=== PATIENT | male | born 1950 | race Caucasian/White ===

== ENCOUNTER 2022-06-10 14:28 | Outpatient (REF) | payer MEDICARE, OTHER, SELFPAY ==
[2022-06-10 15:18] LABS: Influenza A PCR POSITIVE (Negative); Influenza B PCR NEGATIVE (Negative); Resp Syncy Virus RNA Qual PCR NEGATIVE (Negative); SARS COV2 PCR INHOUSE NEGATIVE (Negative)
== END 2022-06-10 14:29 | disposition home or self-care (01) ==
LOC: HO.LNP 14:28
PROVIDERS: Visit Provider Nurse Practitioner Family
DX: Z20.822 Contact with and (suspected) exposure to COVID-19 (principal); R09.89 Other specified symptoms and signs involving the circulatory and respiratory systems
CPT/HCPCS: 0241U

== ENCOUNTER 2024-04-20 13:16 | Outpatient (AMB) | payer MEDICARE, OTHER, SELFPAY ==
--- NOTE | 2024-04-20 13:20 | MHC.OFFWIV ---
Intake Vital Signs 04/20/24 13:23 Height 5 ft 5 in Weight 150 lb BMI 25.0 BP 100/60 Blood Pressure Location Rt brachial Position Sitting Pulse 82 Pulse Source Pulse Oximeter Pulse Oximetry (%) 98 Oxygen Delivery Method Room Air Intake Visit Reasons: EP Gout in RT thumb? Intake Note: pt is here for gout on RT thumb Patient Tobacco Use Status: Never used Tobacco Allergies No Known Allergies Allergy (Verified 04/20/24 13:21) Do you need a note to return to daycare/school/sports/work: No HPI HPI Comments History of Present Illness Details Patient is a 74-year-old male complaining of gout in his right thumb base. He states he has had it in this area many times before and colchicine is the medication he usually takes for it which knocks it read out. He states he has been very tender and painful for the last day. He says he can move it a little bit but it is more painful when he tries to move it. PFSH Social History Patient Tobacco Use Status: Never used Tobacco Review of Systems Const All systems reviewed & are unremarkable except as noted in HPI and below Physical Exam Vital Signs: Last Vital Signs Pulse 82 04/20/24 13:23 BP 100/60 04/20/24 13:23 Pulse Ox 98 04/20/24 13:23 Oxygen Delivery Method Room Air 04/20/24 13:23 BMI result Body Mass Index 25.0 Const General: cooperative, healthy appearing, comfortable and no acute distress Orientation/consciousness: patient oriented x3 HEENT Head: Yes normal to inspection General nose exam: Normal external nose present Face and sinus: Yes normal facial exam Eyes General: appearance normal, both eyes and all related structures Neck Neck: Yes normal visual inspection Resp Effort & Inspection: normal respiratory effort and able to speak in complete sentences Neuro General: patient oriented x3 Extrem Other: exquisite tenderness, erythema and swelling of right thumb MCP, full ROM, normal capillary refill; no ecchymosis, no signs of infection noted Assessment & Plan Assessment & Plan (1) Gout attack: Code(s): M10.9 - Gout, unspecified Qualifiers: Gout site: hand Encounter type: initial encounter Laterality: right Plan: Sent colchicine to pharmacy as patient has previously tolerated it with his current medications. Plan See above Medications: New colchicine On day 1, take 2 tablets followed by 1 tablet 1 hour later. Do not exceed 3 tablets in 24 hours. On day 2 and 3, take 1 tablet every 12 hours. 0.6 mg PO DAILY 7 tabs 0RF Coding Level of Care Code New Pt Level 3 (27571) Diagnoses Gout attack M10.9 Gout site: hand Encounter type: initial encounter Laterality: right
[2024-04-20 13:23] VITALS: BP 100/60; PULSE 82; O2SAT 98; BMI 25.0
== END 2024-04-20 14:04 | disposition home or self-care (01) ==
PROVIDERS: PCP Internal Medicine; Visit Provider Physician Assistant
DX: M10.9 Gout, unspecified (principal)

== ENCOUNTER → 2024-04-20 13:16 | Outpatient (BNVA) | payer MEDICARE, OTHER, SELFPAY | PROVIDERS: PCP Internal Medicine; Visit Provider Physician Assistant | DX: M10.9 Gout, unspecified (principal) | CPT/HCPCS: 99202 ==

== ENCOUNTER 2025-03-15 10:44 | Outpatient (REF) | payer MEDICARE, OTHER, SELFPAY | END 2025-03-15 10:45 | disposition home or self-care (01) | LOC: HO.LAB 10:44 | PROVIDERS: PCP Internal Medicine | DX: J06.9 Acute upper respiratory infection, unspecified (principal) | CPT/HCPCS: 99212 ==

== ENCOUNTER 2025-03-15 10:44 | Outpatient (AMB) | payer MEDICARE, OTHER, SELFPAY ==
--- OUTSIDE RECORDS SUMMARY | 2012-10-11 | XMS_ITS | Encounter Summary ---
Author Organization [facility] Address [address] [facility] [address] [place] [address] Phone Care Team Providers Care News Director Name Role Phone Unavailable Primary Care Provider Unavailabl e Encounter Details Date Type Department Care Team (Late st Contact Info) Description 10/11/2012 Hospital Encounter [facility] [address] [place] [address] Naraayn Morocho MD 55 [facility] [address] [place] [address] [email or web address] Social History Tobacco Use Types Packs/Day Years [...] Description 04/05/2025 4:30 PM EDT Office Visit [facility] Internal Medicine [address] [place] [address] Danny Villar MD [address] [place] [address] [email or web address] 05/22/2025 3:30 PM EST Office Visit [facility] Geriatrics [address] [place] [address] Rafita Osborn DO [address] [place] [address] [email or web address] documented as of this encounter Procedures Procedure Name Priority Date/Time Associated Diagnosis Comments MRI SPINE NEUROLOGIC FOCUS OUTSIDE (NO INTERPRETATION) Routine 10/11/2012 12:00 AM EDT documented in this encounter Results * MRI Spine (Neuro) Outside (No Interpretation) (10/11/2012 12:00 AM EDT) Narrative [facility] - 06/23/2019 3:05 PM EST This study is for PACS storage only and not for interpretation. us Narayan Morocho MD IMG OUTSIDE IMAGING W /OUT INTERPRETATION Final Result [facility] documented in this encounter Visit [...] It is not the complete legal health record.[facility]
--- OUTSIDE RECORDS SUMMARY | 2023-10-28 09:00 | XMS_ITS ---
Author Organization [facility] Address [address] [place] [phone] Care Team Providers Care Woodworking Machine Setter Name Role Phone Danny Villar MD Primary Care Provider Anna Mcgowan Unavailable [phone] Juan Triplett [phone] Etienne Encounters Encounter Location Date Provider Diagnosis [address] [address] 10/28/2023 Juan Triplett Plan Of Treatment Next Appt Details Provider Name:Anna velasquez, 04/10/2025 03:30:00 PM, [address] [place] [address], [phone], Progress Notes * Smith PAIZDOB:1950 (75 yo M)Acc No.[id number]:10/28/2023 Progress Note Patient: Smith MCCANN Provider: Ignacio Triplett DPM :1950 A ge:73 Y S ex:Male Date:10/28/2023 Address:[address] [place], [place] [id number] Pcp:Danny Villar MD Subjective: * Chief Complaints: * [address] Etienne. * Medical History: Objective: * Vitals: Assessment: Plan: * Treatment: * Images: * The named appointment provid er may or may not be the originator of this progress note, and it is not deemed complete until electronically signed by the appointment provider. Sign off status: Pending * Provider: Ignacio Triplett DPM Date: 0 10/28/2023 Generated for Cinthia ngo/Wilber/Chadwick on: 0 03/15/2025 01:28 PM EDT
--- NOTE | 2025-03-15 10:45 | AM.OFFWIN_ITS ---
Intake Vital Signs 03/15/25 10:46 Height 5 ft 5 in Weight 148 lb BMI 24.6 BP 100/68 Blood Pressure Location Lt brachial Position Sitting Respiration 16 Pulse 70 Pulse Source Pulse Oximeter Temp 98.6 F Temp Source Oral Pulse Oximetry (%) 95 Oxygen Delivery Method Room Air Intake Visit Reasons: ep cough sneezing body aches Patient Tobacco Use Status: Never used Tobacco Mechanic Senior Required: No Accompanied by: Self / Same As Patient Allergies No Known Allergies Allergy (Verified 03/15/25 10:46) HPI HPI Comments History of Present Illness Details History - The patient is a 75-year-old male pres enting with a productive cough and shortness of breath when lying down. He is also c/o fatigue, body aches and sneezing. - The cough has been present for five da ys and is productive in nature. - The patient denies any fever and repor ts a normal temperature of 98?F. - Wheezing and slight shortness of breat h occurs primarily when lying down at night. - There is no history of asthma or chron ic obstructive pulmonary disease. - The patient has a pacemaker and is on Eliquis, a blood thinner. - Mild sinus congestion is noted, with s ome tenderness on palpation. - The patient reports fatigue but denies any ear pain, nausea, vomiting, or diarrhea; denies dizziness or syncope. Physical Exam General: Cooperative, healthy appearing, comfortable and no acute distress Orientation/consciousness: Patient oriented x3 Limitations: No limitations Head: Normal to inspection Ears: Hearing grossly normal bilaterally, external ears normal and TM's normal bilaterally Nose: Normal external nose present, Normal nares present and No nasal discharge present Face and sinus: Normal facial exam and Mild sinus tenderness Mouth: Normal oral and palatal mucosa present and moist mucous membranes Throat: Yes tonsils normal, Yes uvula midline. Posterior oropharynx erythema, no exudates Eyes: Appearance normal, both eyes and all related structures Neck: Normal visual inspection, full ROM Respiratory: no wheezing, slight rhonchi LLL. Normal respiratory effort, able to speak in complete sentences, Actively coughing, no respiratory distress, not tachypneic, no tripod positioning and no use of accessory muscles. Cardiovascular: Regular rate and rhythm. Normal S1 and S2 Skin: No rashes or lesions noted Neuro: Patient oriented x3 Extremities: Normal to inspection and Yes no clubbing, cyanosis or edema Review of Systems - Respiratory: Reports productive cough for five days, denies fever, reports shortness of breath when lying down - Cardiovascular: Denies chest pain or p alpitations - Gastrointestinal: Denies nausea, vomit ing, or diarrhea - Neurological: Reports fatigue, denies dizziness or syncope All systems reviewed and are unremarkable except as noted in HPI [facility] Social History Patient Tobacco Use Status: Never used Tobacco Physical Exam Vital Signs: Last Vital Signs Temp 98.6 F 03/15/25 10:46 Pulse 70 03/15/25 10:46 Resp 16 03/15/25 10:46 BP 100/68 03/15/25 10:46 Pulse Ox 95 03/15/25 10:46 Oxygen Delivery Method Room Air 03/15/25 10:46 BMI result Body Mass Index 24.6 Assessment & Plan Assessment & Plan (1) URI, acute: Code(s): J06.9 - Acute upper respiratory infection, unspecified Plan: Plan Patient was informed and verbally consented to the use of an ambient scribe for clinic note documentation during this visit. - O2 sat 95%, other VSS, pt well appearing and PE remarkable for slightly rhonchorous LLL. - Sent Tesselon Pearles to pharmacy to quell cough, advised to take primarily at night. - Advised to continue Mucinex and consider adding an allergy pill. - Viral panel sent and chest x-ray ordered to rule out underlying infection with lung sounds and O2 a little decreased from his baseline. Orders: Orders Resp Pathogen Panel - [facility] [place] Today J06.9 - Acute upper respiratory infection, unspecified XR chest 2V Today R05.9 - Cough, unspecified Medications: New benzonatate 200 mg PO BEDTIME PRN 10 caps 0RF cough Coding Level of Care Code New Pt Level 4 (09719) Diagnoses URI, acute J06.9
[2025-03-15 10:46] VITALS: BP 100/68; PULSE 70; RESP 16; TEMP 37; O2SAT 95; BMI 24.6
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
--- OUTSIDE RECORDS SUMMARY | 2025-03-15 13:28 | XMS_ITS | Clinical Summary ---
Author Organization [facility] Address [address] [place] [address] Phone Care Team Providers Care Website Optimization Strategist Name Role Phone Danny Villar MD Primary Care Provider [phone] Manjit Sutherland MD Unavailable Un available Danny Villar MD Unavailable [phone] Allergies Active Allergy Reactions Criticality Noted Date Comments Amiodarone 04/01/2021 Caused balance issues, tremors Codeine 03/01/2021 Upsets stomach Other Reaction(s): Unknown Latex, Natural Rubber Rash Low 11/06/2022 Pt states rash with exercise belt which is made of rubber Morphine 03/01/2021 Upsets stomach Other Reaction(s): Unknown Sulfadiazine 02/19/2024 Other Reaction(s): vertigo Medications buPROPion (WELLBUTRIN SR) 150 MG SR 12 hr tablet Take 150 mg by mouth daily. 1 Active therapeutic multivitamin tablet Take 1 tablet by mouth daily. Active Medication-Free TextIndications:Bi PAP Machine Indications: BiPAP Machine Active ELIQUIS 5 mg tabletIndications: Paroxysmal atrial fibrillation Take 1 tablet (5 mg total) by mouth 2 (two) times a day. 180 tablet 2 1 Active rosuvastatin (CRESTOR) 20 MG tablet Take 20 mg by mouth daily. 1 Active magnesium 250 mg Tab Take by mouth nightly at bedtime. Active traZODone (DESYREL) 50 MG tablet Take 1 tablet by mouth nightly at bedtime. 2 Active amoxicillin (AMOXIL) 500 MG tablet Prior to dental procedures 2 Active ascorbic acid, vitamin C, (VITAMIN C) 500 MG tablet Take 500 mg by mouth daily. Active aspirin 81 MG EC tablet Take 81 mg by mouth daily. Active psyllium seed, with sugar, (FIBER ORAL) Take 1 capsule by mouth daily. Active carvedilol (COREG) 12.5 MG tablet Take 12.5 mg by mouth 2 (two) times a day with meals. 2 Active DULoxetine (CYMBALTA) 60 MG capsule Take 60 mg by mouth 2 (two) times a day. 2 Active zinc sulfate (ZINC-15 ORAL) Take 1 capsule by mouth daily. 2 Active fluticasone propionate (FLONASE) 50 mcg/actuation nasal sprayIndications:A llergic rhinitis, unspecified seasonality, unspecified trigger 2 sprays by Nasal route daily. 16 g 12 3 Active spironolactone (ALDACTONE) 25 MG tablet Take 25 mg by mouth daily. 3 Active sacubitril-valsart an 24-26 mg per tablet Take 1 tablet by mouth 2 (two) times a day. 4 Active TURMERIC ORAL Take 1 tablet by mouth daily. 4 Active levothyroxine (SYNTHROID, LEVOTHROID) 100 MCG tabletIndications: Hypothyroidism, unspecified TAKE 1 TABLET BY MOUTH EVERY DAY IN THE MORNING 90 tablet 3 5 Active clonazePAM (KLONOPIN) 0.25 MG disintegrating tablet Take 0.25 mg by mouth nightly at bedtime. 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 Srikanth Plasencia MD [phone] r/t PRN Degenerative disc disease, lumbar 06/24/2019 Anxiety 05/31/2019 Cardiovascular disease 05/31/2019 Carpal tunnel syndrome 05/31/2019 Depression 05/31/2019 Hypertension 05/31/2019 Hyperlipidemia 06/07/2018 History of back surgery 06/07/2018 Overview (06/07/2018): Prior back surgery x2, first at L5-S1 and second one at L4-5 Postlaminectomy syndrome of lumbar region 2012 Overview (05/14/2021): Postlaminectomy Syndrome (Lumbar) Status post insertion of spinal cord stimulator 06/22/2012 Overview (08/25/2019): (thoracic) inserted at the [facility] 2012 Sleep apnea 06/22/2006 Overview (06/07/2018): [facility] test [facility] Coronary artery disease 08/20/2000 Overview (06/07/2018): with anterior wall HI in 08/2000 Resolved Problems Problem Noted Date Diagnosed Date Resolved Date Bruit 05/31/2019 11/17/2024 Leukocytosis 05/31/2019 11/17/2024 Encounters Date Type Department Care Team Description 02/17/2025 Telephone [facility] [address] [facility] [place] [address] Danny Villar MD Appointment from Last 3 Months Immunizations Immunization Administration Dates Next Due COVID-19 (Pre-04/13) Pfizer Vaccine, mRNA, PF 09/06/2020,08/17/2020 INFLUENZA, SPLIT VIRUS, TRIV ALENT W/ PRESERVATIVE IM 03/22/2012 Influenza High-Dose Quadriva lent Preservative Free IM 03/25/2022,04/16/2020 Influenza High-Dose Trivalen t Preservative Free IM 04/26/2024,04/15/2017,04/04/2016,04/23,04/24/2014 Influenza Quadrivalent Adjuv anted Preservative Free IM 04/27/2023,04/09/2021 Influenza Quadrivalent Prese rvative Free IM 04/14/2018 Influenza Trivalent Adjuvant ed Preservative free IM 03/28/2019 Influenza trivalent preserva tive free intradermal 05/03/2013 Influenza, Unspecified Formulation 04/04/2010, Pneumococcal conjugate PCV13 12/14/2015 Pneumococcal polysaccharide PPSV23 12/15/2016, Td (adult) 5 Lf Tetanus Toxo id, PF, Adsorbed 09/20/2001 Tdap 07/01/2013 Family History Medical History Relation Comments Heart disease Father Relation Status Comments Father Social History Tobacco Use Types Packs/Day Years [...] Orientation Straight 10/31/2021 7: 58 PM EDT Last Filed Vital Signs Vital Sign Reading Time Taken Comments Blood Pressure 86/60 11/17/2024 10:39 AM EDT ch ecked 2x Pulse 72 11/17/2024 10:39 AM EDT Temperature 36.3 C (97.4 F) 08/18/2024 4:08 PM EST Respiratory Rate 16 08/18/2024 4:08 PM EST Oxygen Saturation 99% 08/18/2024 4:08 PM EST Inhaled Oxygen Concentration - - Weight 74.8 kg (165 lb) 11/17/2024 10:39 AM EDT Height 162.6 cm (5' 4.02 ) 08/18/2024 4:08 PM ES T Body Mass Index 28.31 08/18/2024 4:08 PM EST Plan of Treatment Upcoming Encounters Date Type Department Care Team (Late st Contact Info) Description 04/05/2025 4:30 PM EDT Office Visit [facility] Internal Medicine [address] [place] [address] Danny Villar MD [address] [place] [address] 05/22/2025 3:30 PM EST Office Visit [facility] Geriatrics [address] [place] [address] Rafita Osborn DO [address] [place] [address] [email or web address] Health Maintenance Due Date Last Done Comments ZOSTER VACCINES (1 of 2) 1999 Adult Td,Tdap Booster 07/01/2023 07/01/2013, 002 RSV VACCINE (1 - 1-dose 75+ series) 02/16/2024 REPEAT PHQ 12/17/2024 11/16/2024, 11/16/2024 INFLUENZA VACCINE (#1) 2025 , 04/27/2023, 04/27/2023, Additional history exists COVID-19 VACCINE ( season) 2025 03/12/2022, 07/22/2021, 09/06/2020, Additional history exists BLOOD PRESSURE 05/20/2025 11/17/2024 CREATININE LEVEL 08/30/2025 08/30/2024, , 08/20/2022, Additional history exists POTASSIUM LEVEL 08/30/2025 08/30/2024, 01/20, 08/20/2022, Additional history exists TSH LEVEL 08/30/2025 08/30/2024, 01/20, 08/20/2022, Additional history exists DEPRESSION SCREENING 11/16/2025 11/16/2024, 11/17/19 25 PNEUMOCOCCAL VACCINES (50+ years) Completed 12/15/2016, 12/14/2015, 03/22/2002 HEPATITIS C SCREENING Completed 06/07/2018, 018 SMOKING STATUS SCREENING (Once After 26 Yrs) Completed 11/17/2024 HEPATITIS A VACCINES Aged Out No long er eligible based on patient's age to complete this topic HIB VACCINES Aged Out No longer eligi ble based on patient's age to complete this topic MENINGOCOCCAL VACCINES (ACWY) Aged Out No longer eligible based on patient's age to complete this topic MENINGOCOCCAL VACCINES (B) Aged Out N o longer eligible based on patient's age to complete this topic Medical Devices Not on file Procedures Procedure Name Priority Date/Time Associated Diagnosis Comments TSH WITH REFLEX Routine 08/30/2024 11:40 AM EDT Essential hypertension COMPREHENSIVE METABOLIC PANEL Routine 08/30/2024 11:40 AM EDT Essential hypertension Chronic systolic congestive heart failure HEPATITIS C ANTIBODY, QUALITATIVE Routine 06/07/2018 2:01 PM EST Need for hepatitis C screening test from Last 3 Months or Most Recently Relevant to Health Maintenance Results * (ABNORMAL) Comprehensive metabolic panel (08/30/2024 11:40 AM EDT) SODIUM 135 133 - 146 mmol/L [facility] POTASSIUM 5.0 3.3 - 5.1 mmol/L [facility] CHLORIDE 100 96 - 108 mmol/L [facility] CO2 26 21 - 35 mmol/L [facility] BUN 28(H) 6 - 19 mg/dL [facility] CREATININE 1.40 0.5 - 1.5 mg/dL [facility] GLUCOSE 108(H) 70 - 99 mg/dL [facility] ALBUMIN 4.4 3.9 - 4.8 g/dL [facility] TOTAL PROTEIN 7.3 6.5 - 8.0 g/dL [facility] CALCIUM 9.5 8.4 - 10.3 mg/dL [facility] ALKALINE PHOSPHATASE 54 39 - 117 U/L [facility] TOTAL BILIRUBIN 0.7 0.0 - 1.2 mg/dL [facility] AST 25 0 - 37 U/L [facility] ALT 21 0 - 40 U/L [facility] GLOBULIN 2.9 1 - 4.8 g/dL [facility] EGFR 52(L) >59 mL/min/1.7 3m2 [facility] Comment:Estimated glomerular filtration rate calculated using the CKD-EPI refit equation. ANION GAP 14 10 - 20 mmol/L [facility] Blood 08/30/2024 11:4 0 AM EDT 08/30/2024 11:45 AM EDT us Danny Villar MD LAB BLOOD ORDERABLES Final Re sult [facility] [address] [place] [address] * TSH with reflex (08/30/2024 11:40 AM EDT) TSH 2.36 0.27 - 4.20 uIU/mL [facility] Blood 08/30/2024 11:4 0 AM EDT 08/30/2024 11:45 AM EDT Danny Villar MD LAB BLOOD ORDERABLES Final Re sult [address] [address] * Hepatitis C antibody, qualitative (06/07/2018 2:01 PM EST) HCV Negative Negative [facility] Comment: This is a screening test and should be confirmed with molecular testing Blood 06/07/2018 2:01 PM EST 06/07/2018 7:54 PM EST Danny Villar MD LAB BLOOD ORDERABLES Final Re sult Performing Organization Address [facility] Co de Phone Number [address] [address] from Last 3 Months or Most Recently Relevant to Health Maintenance Insurance MEDICARE PART A & B [facility] MEDICARE SUPPLEMENT MEDICARE PART A & B MEDICARE SUPPLEMENT MEDICARE PART A & B MEDICARE SUPPLEMENT MEDICARE PART A & B MEDICARE SUPPLEMENT MEDICARE PART A & B MEDICARE SUPPLEMENT MEDICARE PART A & B [id number] [place] [address] MEDICARE SUPPLEMENT MEDICARE PART A & B [facility] MEDICARE SUPPLEMENT MEDICARE PART A & B [facility] MEDICARE SUPPLEMENT MEDICARE PART A & B [facility] MEDICARE SUPPLEMENT Care Teams Website Optimization Strategist Relationship Specialty Start Date End Date Danny Villar MD [address] [place] [address] [email or web address] PCP - General 05/21/17 Manjit Sutherland MD Cardiology 08/25/19 Danny Villar MD [address] [place] [address] [email or web address] Insurance Assigned Provider 09/26/23 Additional Source Comments The information contained in this document represents components of the legal health record. It is not the complete legal health record.[facility]
--- OUTSIDE RECORDS SUMMARY | 2025-03-15 13:28 | XMS_ITS | Patient Health Record ---
Author Organization [facility] Address [address] [place] [address] Care Team Providers Care Acct Exec Name Role Phone Danny Villar MD Primary Care Provider Melchor Del Valle Jr Unavailable Allergies Allergen (clinical drug ingredient) Drug/Non Drug Allergy documented on EMR Reaction Allergy Type Onset Date Status morphine Morphine Sulfate Unknown Drug Allergy Active Codeine Phosphate Unknown Drug Allergy Active Substance with sulfonamide structure and antibacterial mechanism of action (substance) Sulfa (uncoded) Unknown Allergy Active Reason For Referral No Information Medications Medication SIG (Take, Route, Frequency, Duration) Notes Start Date End Date Status hydroCHLOROthiazide 25mg Active Aspir-81 81mg Active Metoprolol-hydroCHLOROthiazi de 25mg Active PROzac Active Vytorin Active Multivitamins Active Suprep Bowel Prep 1 as directed Orally 1 for 1 dose 02/23/2013 06/22/2024 Active Lisinopril 25mg Acti ve Problems Problem Type SNOMED Code ICD Code Onset Dates Problem Status W/U Status Risk Notes Problem Rectal bleeding (38711913) Rectal bleeding (569.3) Active confirmed Problem Colitis (45864738) Colitis (558.9) Active confirmed Problem Rectal pain (12467391) Rectal pain (569.42) Active confirmed Plan Of Treatment Pending Test Test Name Order Date Hemoccult Cards (Screening) 03/24/2012 Future Test Test Name Order Date COLONOSCOPY 02/23/2013 Insurance Providers Payer Name Payer Address Payer Phone Subscriber Number Group Number Insured Name Patient Relationship to Insured Coverage Start Date Coverage End Date [facility] [address] [place] [phone] [phone] [id number] JORY BRAGG Self - patient is the insured Medical (General) History Medical History History ICD Code sleep apnea coronary disease with PR and stent place ment hypertension elevated cholesterol anxiety Surgical History Surgery Date(Month/Year) back surgery Stent placement
--- OUTSIDE RECORDS SUMMARY | 2025-03-15 13:28 | XMS_ITS | Clinical Summary ---
Author Organization [facility] Address [address] [place] [address] Care Team Providers Care Plumbing Designer Name Role Phone Danny Villar Primary Care Provider [phone] Social History Tobacco Use Types Packs/Day Years Used Date Smoking Tobacco: Never Assessed Sex and Gender Information Value Date Recorded Sex Assigned at Not on file Legal Sex Male 1:56 AM EDT Gender Identity Not on file Sexual Orientation Not on file Plan of Treatment Health Maintenance Due Date Last Done Comments Hepatitis C Screening 1950 DTaP/Tdap/Td (1 - Tdap) 1967 Pneumococcal 50+ years (1 of 1 - PCV) 1999 Zoster (Shingrix) (1 of 2) 1999 RSV (1 - 1-dose 75+ series) 02/16/2024 COVID-19 Vaccine ( - 2023-2 5 season) 2025 Influenza (#1) 2025 HPV Vaccine (No Doses Required) Completed Hep A Aged Out No longer eligi ble based on patient's age to complete this topic Hep B Aged Out No longer eligi ble based on patient's age to complete this topic Hib Aged Out No longer eligi ble based on patient's age to complete this topic Meningococcal ACWY Aged Out No longer eligible based on patient's age to complete this topic Zoster (Zostavax) Discontinued Insurance [facility] Care Teams Plumbing Designer Relationship Specialty Start Date End Date Danny Villar [facility] INTER[facility]IC[facility] [address] [place] [phone] PCP - General Internal Medicine 12/20/10
--- OUTSIDE RECORDS SUMMARY | 2025-03-15 13:28 | XMS_ITS | Patient Health Record ---
Author Organization [facility] Address [address] [facility] [address] [place] [address] Care Team Providers Care Medical Record Specialist Name Role Phone Danny Villar Primary Care Provider KARINE Zamora Unavailable [phone] Allergies Allergen (clinical drug ingredient) Drug/Non Drug Allergy documented on EMR Reaction Allergy Type Onset Date Status codeine Codeine Unknown Drug Allergy Active Substance with sulfonamide structure and antibacterial mechanism of action (substance) Sulfa Antibiotics GI upset Drug Allergy Active morphine Morphine Unknown Drug Allergy Active Reason For Referral No Information Medications Medication SIG (Take, Route, Frequency, Duration) Notes Start Date End Date Status Zinc Sulfate Active traZODone HCl 50 MG 1 tablet at bedtime as needed Orally Once a day Active Spironolactone 25 MG as directed Orally Not-Taking Rosuvastatin Calcium 20 MG 1 tablet Oral ly Once a day Active DULoxetine HCl 60 MG 1 capsule Orally On ce a day Active clonazePAM 0.25 MG 1 tablet on the tong ue and allow to dissolve 30 minutes before bedtime Orally Once a day Active Wellbutrin XL 300 MG 1 tablet in the morning Orally Once a day Active Carvedilol 12.5 MG 1 tablet with food Orally Twice a day Active Entresto 24-26 MG 1 tablet Orally Twic e a day Active Ascorbic Acid 500 MG 1 tablet Orally Onc e a day Active Magnesium 250 MG 1 tablet with a meal Orally Once a day Active Levothyroxine Sodium 100 MCG 1 tablet in the morning on an empty stomach Orally Once a day Active Eliquis 5 MG as directed Orally Active Problems Problem Type SNOMED Code ICD Code Onset Dates Problem Status W/U Status Risk Notes Problem Lumbar radiculopathy (118371699) Right lumbar radiculopathy (M54.16) Active confirmed Vital Signs Height 5ft 4in in 11/11/2024 Weight 155.7 lbs 11/11/2024 BMI 26.72 kg/m2 11/11/2024 Encounters Encounter Location Date Provider Diagnosis [facility] [address] 11/11/2024 KARINE KIM Pain in right ankle and joints of right foot M25.571 and Right lumbar radiculopathy M54.16 [facility] [address] 11/08/2024 KARINE KIM Assessments Encounter Date Diagnosis (ICD Code) Assessment Notes Treatment Notes Treatment Clinical Notes Section Notes 11/11/2024 Pain in right ankle and joints of right foot (ICD-10 - M25.571) This is an outpatient visit for evaluation and management of a new patient, which required appropriate review of pertinent medical history, review of any previous imaging, review of all previous records, and examination and decision-making. Time was 45 minutes spent in review of all these facets including face to face discussion with the patient regarding my findings and in discussion of a current and future treatment plan. Four weightbearing radiographs of the right foot and ankle taken in the office today and reviewed. No obvious abnormal findings to explain his chronic symptoms. He has been dealing with pain in the right ankle, heel and great toe region. This can be triggered with certain movements. I am only able to elicit some of the pain with pressure into the posteromedial ankle region. I discussed with him that this pain is likely multifactorial. it may be a combination of his radiculopathy and tendinopathy. He seems to have instances of weakness. I discussed the option of a localized steroid injection into the posteromedial aspect of the ankle to see if this helps with any of the sensitivity. I also discussed the option of bracing to help with the weakness and pain. I stressed that I cannot gaurantee that these will eliminate the pain especially if there is a component coming from the spine. He expressed undetstanding. He wants to think about these options and will let me know in the future what he would like to do. I encouraged him and his to call if they have any additional questions or concerns. 11/11/2024 Right lumbar radiculopathy (ICD-10 - M54.16) Plan Of Treatment No Information Insurance Providers Payer Name Payer Address Payer Phone Subscriber Number Group Number Insured Name Patient Relationship to Insured Coverage Start Date Coverage End Date [employer] [place] [address] [place] [phone] [id number] Izabel Smith Self - patient is the insured [facility] [address] [place] [address] [id number] [place] Self - patient is the insured Medical (General) History Medical History History ICD Code anxiety disorder Osteoarthritis Obstructive sleep apnea Chronic lumbar spine issues with radicul opathy, right sided. hypercholesteremia Heart failure with reduced ejection frac tion cardiomyopathy Surgical History Surgery Date(Month/Year) excision of basal cell carcinoma pacemaker/ defibrillator laminectomy x2 spinal cord stimulator [employer] implant
--- OUTSIDE RECORDS SUMMARY | 2025-03-15 13:28 | XMS_ITS | Encounter Summary ---
Author Organization [facility] Address [address] [address] Phone Care Team Providers Care Supply Tech Name Role Phone Danny Villar MD Primary Care Provider [phone] Manjit Sutherland MD Unavailable Un available Danny Villar MD Unavailable [phone] Reason for Visit * Reason Onset Date Comments Medication Prior Authorization 09/04/2022 Encounter Details Date Type Department Care Team (Late Contact Info) Description 09/04/2022 Telephone [facility] Internal Medicine [address] [place] [address] Adilia Sandhu RN [email or web address] Medication Prior Authorization Social History Tobacco Use Types Packs/Day Years Used Date Smoking Tobacco: Never Smokeless Tobacco: Never Alcohol Use Standard Drinks/Week Comments Not Currently 0 (1 standard drink = 0.6 oz pur e alcohol) Sex and Gender Information Value Date Recorded Sex Assigned at Male 10/31/2021 7:58 PM EDT Legal Sex Male 10:04 PM EDT Gender Identity Male 10/31/2021 7:58 PM EDT Sexual Orientation Straight 10/31/2021 7: 58 PM EDT documented as of this encounter Plan of Treatment Upcoming Encounters Date Type Department Care Team (Late Contact Info) Description 04/05/2025 4:30 PM EDT Office Visit [facility] Internal Medicine [address] [place] [address] Danny Villar MD [address] [place] [address] 05/22/2025 3:30 PM EST Office Visit [facility] Geriatrics [address] [place] [address] Rafita Osborn DO [address] [place] [address] [email or web address] documented as of this encounter Visit Diagnoses Not on filedocumented in this encounter Additional Health Concerns Assessment Noted Time PHQ-2 Depression Total Score: 2 08/11/19 23 11:45 AM EST documented as of this encounter Care Teams Supply Tech Relationship Specialty Start Date End Date Danny Villar MD [address] [place] [address] PCP - General 05/21/17 Manjit Sutherland MD Cardiology 08/25/19 Danny Villar MD [address] [place] [address] Insurance Assigned Provider 09/26/23 documented as of this encounter Additional Source Comments The information contained in this document represents components of the legal health record. It is not the complete legal health record.[facility]
== END 2025-03-15 11:04 | disposition home or self-care (01) ==
PROVIDERS: PCP Internal Medicine; Visit Provider Physician Assistant
DX: J06.9 Acute upper respiratory infection, unspecified (principal)

== ENCOUNTER 2025-03-15 11:02 | Outpatient (REF) | payer MEDICARE, OTHER, SELFPAY ==
--- NOTE | ~2025-03-15 | XR_ITS ---
EXAMINATION: XR CHEST CLINICAL INFORMATION: R05.9 - Cough, unspecified COMPARISON: None available. TECHNIQUE: 2 views of the chest were obtained. FINDINGS: There is a left-sided dual-lead pacer/AICD device in place, with leads extending into the right atrium and right ventricle. The cardiac, hilar, and mediastinal contours are normal. There are coronary stents noted. The lungs are clear bilaterally. There is no pneumothorax or pleural effusion. There is no focal osseous or soft tissue abnormality. XR/XR chest 2V IMPRESSION: No active pulmonary disease. Electronically signed by: Festus Paul MD 03/15/2025 11:37 AM EDT
[2025-03-15 14:56] LABS: Chlamydia pneumoniae PCR Not Detected (Not Detect.); Coronavirus 229E PCR Not Detected (Not Detect.); Coronavirus HKU1 PCR Not Detected (Not Detect.); Coronavirus NL63 PCR Not Detected (Not Detect.); Coronavirus OC43 PCR Not Detected (Not Detect.); RSV PCR Not Detected (Not Detect.); Rhino/Enterovirus PCR Detected (Not Detect.)
[2025-03-15 14:58] LABS: Influenza A H1 PCR Not Detected (Not Detect.); Influenza A H1-2009 PCR Not Detected (Not Detect.); Influenza A H3 PCR Not Detected (Not Detect.); SARS-CoV-2 PCR Not Detected (Not Detect.)
== END 2025-03-15 11:03 | disposition home or self-care (01) ==
LOC: HO.HMGCX 11:02
PROVIDERS: PCP Internal Medicine; Visit Provider Physician Assistant
DX: J06.9 Acute upper respiratory infection, unspecified (principal); R05.9 Cough, unspecified
CPT/HCPCS: 71046; 87633

== ENCOUNTER → 2025-03-15 11:06 | Outpatient (BNV) | payer MEDICARE, OTHER, SELFPAY | PROVIDERS: PCP Internal Medicine; Visit Provider Radiology Diagnostic Radiology | DX: R05.9 Cough, unspecified (principal) | CPT/HCPCS: 71046 ==

== ENCOUNTER 2025-03-20 16:20 | Outpatient (AMB) | payer MEDICARE, OTHER, SELFPAY ==
--- OUTSIDE RECORDS SUMMARY | 2012-10-11 | XMS_ITS | Encounter Summary ---
Author Organization [facility] Address [address] [facility] [address] [place] [address] Phone Care Team Providers Care Gymnastic Teacher Name Role Phone Unavailable Primary Care Provider Unavailabl e Encounter Details Date Type Department Care Team (Late st Contact Info) Description 10/11/2012 Hospital Encounter [facility] [address] [place] [address] Narayan Morocho MD 55 [facility] [address] [place] [address] [email or web address] Social History Tobacco Use Types Packs/Day Years Used Date Smoking Tobacco: Never Smokeless Tobacco: Never Alcohol Use Standard Drinks/Week Comments Not Currently 0 (1 standard drink = 0.6 oz pur e alcohol) Education Answer Date Recorded Are you interested in more education? Not on lindsay e 10/17/2022 Are you concerned about learning? Not on file 10/17/2022 No 10/17/2022 No 10/17/2022 Digital Access Answer Date Recorded No 11/17/2022 No 11/17/2022 Reliable internet access at home? Not on file 11/17/2022 Device with a working camera? Not on file Intimate Partner Violence Answer Date R ecorded Denied Basic Needs Not on file 02/18/2024 In the past 12 months have y ou been in a relationship with a person who hurts, threatens, or tries to control you? No 02/18/2024 Worried food would run out Not on file 02/17 In the past 12 months have y ou been in a relationship with a person who hurts, threatens, or tries to control you? No 02/18/2024 Sex and Gender Information Value Date Recorded Sex Assigned at Male 10/31/2021 7:58 PM EDT Legal Sex Male 10:04 PM EDT Gender Identity Male 10/31/2021 7:58 PM EDT Sexual Orientation Straight 10/31/2021 7: 58 PM EDT documented as of this encounter Plan of Treatment Upcoming Encounters Date Type Department Care Team (Late st Contact Info) Description 04/05/2025 4:30 PM EDT Office Visit [facility] Internal Medicine [address] [place] [address] Danny Villar MD [address] [place] [address] [email or web address] 05/22/2025 3:30 PM EST Office Visit [facility] Geriatrics [address] [place] [address] Rafita Osborn DO [address] [place] [address] [email or web address] documented as of this encounter Procedures Procedure Name Priority Date/Time Associated Diagnosis Comments MRI SPINE NEUROLOGIC FOCUS OUTSIDE (NO INTERPRETATION) Routine 10/11/2012 12:00 AM EDT documented in this encounter Results * MRI Spine (Neuro) Outside (No Interpretation) (10/11/2012 12:00 AM EDT) Narrative [facility] IMG INTERFACES - 06/23/2019 3:05 PM EST This study is for PACS storage only and not for interpretation. us Narayan Morocho MD IMG OUTSIDE IMAGING W /OUT INTERPRETATION Final Result [facility] IMG INTERFAC[facility] documented in this encounter Visit Diagnoses Not on filedocumented in this encounter Additional Health Concerns Infection Onset Date Last Indicated Resolved Time COVID-19 04/16/2021 04/16/2021 05/07/2021 1:21 AM EST CoV-Risk 10/18/2021 10/18/2021 10/19/2021 5:42 AM EDT COVID-19 10/18/2021 10/18/2021 11/08/2021 1:23 AM EDT documented as of this encounter Additional Source Comments The information contained in this document represents components of the legal health record. It is not the complete legal health record.[facility]
--- OUTSIDE RECORDS SUMMARY | 2023-10-28 09:00 | XMS_ITS ---
Author Organization [facility] Address [address] [place] [phone] Care Team Providers Care Spraying Machine Operator Name Role Phone Danny Villar MD Primary Care Provider Anna Mcgowan Unavailable [phone] Juan Triplett [phone] Etienne Encounters Encounter Location Date Provider Diagnosis [address] [address] 10/28/2023 Juan Triplett Plan Of Treatment Next Appt Details Provider Name:Anna velasquez, 04/10/2025 03:30:00 PM, [address] [place] [address], [phone], Progress Notes * Smith PAIZDOB:1950 (75 yo M)Acc No.[id number]:10/28/2023 Progress Note Patient: Nena HASSAN Smith Provider: Ignacio Triplett DPM :1950 A ge:73 Y S ex:Male Date:10/28/2023 Address:[address] [place], [place] [id number] Pcp:Danny Villar MD Subjective: * Chief Complaints: [...] DPM Date: 0 10/28/2023 Generated for Cinthia nog/Wilber/Chadwick on: 0 03/20/2025 06:19 PM EDT
[2025-03-20 16:23] VITALS: BP 102/64; PULSE 71; TEMP 36.2; O2SAT 100; BMI 24.6
--- NOTE | 2025-03-20 16:23 | AM.OFFWIN_ITS ---
Intake Vital Signs 03/20/25 16:23 Height 5 ft 5 in Weight 148 lb BMI 24.6 BP 102/64 Blood Pressure Location Lt brachial Position Sitting Pulse 71 Pulse Source Pulse Oximeter Temp 97.2 F Temp Source Oral Pulse Oximetry (%) 100 Oxygen Delivery Method Room Air Intake Visit Reasons: EP Productive cough, yellow mucus Intake Note: pt presents with worsening productive cough Patient Tobacco Use Status: Never used Tobacco Allergies codeine Adverse Reaction (Intermediate, Verified 03/20/25 16:24) Nausea and Vomiting Do you need a note to return to daycare/school/sports/work: No HPI HPI Comments History of Present Illness Details History - The patient is a 75-year-old male pres enting with a productive cough and concerns about a possible respiratory infection. - The cough began a few nights before th e initial visit, with sputum changing from clear to yellow. - A chest x-ray was negative for pneumon ia, and a respiratory panel indicated rhinovirus infection. - Tessalon Perles are being used for cou gh relief, with avoidance of codeine due to adverse effects. - No shortness of breath or fever has be en noted, with a maximum temperature of 98.4?F. - He was concerned as his phlegm was yel low and it was clear last week. - He denies ST, ear pain, fatigue, SOB, CP, abd pain, n/v/d. Physical Exam General: Cooperative, healthy appearing, comfortable and no acute distress Orientation/consciousness: Patient oriented x3 Limitations: No limitations Head: Normal to inspection Ears: Hearing grossly normal bilaterally, external ears normal and TM's normal bilaterally Nose: Normal external nose present, normal nares present, and no nasal discharge present. Face and sinus: Sinuses nontender to palpation. Mouth: Normal oral and palatal mucosa present and moist mucous membranes noted. Throat: Tonsils normal. Uvula is midline. Posterior oropharynx with erythema and no exudates. Eyes: Appearance normal, both eyes and all related structures Neck: Normal visual inspection, full ROM. No lymphadenopathy noted. Respiratory: Clear to auscultation bilaterally. Normal respiratory effort, able to speak in complete sentences. No respiratory distress, not tachypneic, no tripod positioning and no use of accessory muscles. Cardiovascular: Regular rate and rhythm. Normal S1 and S2 Skin: No rashes or lesions noted Patient was informed and verbally consented to the use of an ambient scribe for clinic note documentation during this visit [facility] Social History Patient Tobacco Use Status: Never used Tobacco Review of Systems Const All systems reviewed & are unremarkable except as noted in HPI and below Physical Exam Vital Signs: Last Vital Signs Temp 97.2 F 03/20/25 16:23 Pulse 71 03/20/25 16:23 BP 102/64 03/20/25 16:23 Pulse Ox 100 03/20/25 16:23 Oxygen Delivery Method Room Air 03/20/25 16:23 BMI result Body Mass Index 24.6 Assessment & Plan Assessment & Plan (1) Cough: Code(s): R05.9 - Cough, unspecified Qualifiers: Cough type: acute Qualified Code(s): R05.1 - Acute cough Plan Most likely rhinovirus plan - reviewed his CXR and resp panel from 03/15 - Continue Tessalon Perles for cough relief. - Monitor symptoms; return if no improvement by Thursday for possible reevaluation and antibiotic consideration. Coding Level of Care Code Est Pt Level 3 (33006) Diagnoses Acute cough R05.1 Cough type: acute
--- OUTSIDE RECORDS SUMMARY | 2025-03-20 18:20 | XMS_ITS | Patient Health Record ---
Author Organization [facility] Address [address] [place] [address] Care Team Providers Care Job Training Supervisor Name Role Phone Danny Villar Primary Care Provider KARINE Zamora Unavailable [phone] Allergies Allergen (clinical drug ingredient) Drug/Non Drug [...] W/U Status Risk Notes Problem Lumbar radiculopathy (794035014) Right lumbar radiculopathy (M54.16) Active confirmed Vital Signs Height 5ft 4in in 11/11/2024 Weight 155.7 lbs 11/11/2024 BMI 26.72 kg/m2 11/11/2024 Encounters Encounter Location Date Provider Diagnosis [facility] [address] 11/11/2024 KARINE KIM Pain in right ankle and joints of right foot M25.571 and Right lumbar radiculopathy M54.16 [facility] [address] 11/08/2024 KARINE KIM Assessments Encounter Date [...] of [place] [address] [place]SE CAT [id number] Izabel Smith Self - patient is the insured [facility] [address] [place] [address] [id number] [place] chinchilla Self - patient is the insured [...]
--- OUTSIDE RECORDS SUMMARY | 2025-03-20 18:20 | XMS_ITS | Clinical Summary ---
Author Organization [facility] Address [address] [place] [address] Care Team Providers Care Paint Line Production Supervisor Name Role Phone Danny Villar Primary Care Provider [phone] Social History Tobacco Use Types Packs/Day Years [...] complete this topic Zoster (Zostavax) Discontinued Insurance [facility] Care Teams Paint Line Production Supervisor Relationship Specialty Start Date End Date Danny Villar [facility] [address] [place] [id number] PCP - General Internal Medicine 12/20/10
--- OUTSIDE RECORDS SUMMARY | 2025-03-20 18:20 | XMS_ITS | Data Portability ---
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 were discussed with patient. Alternativ es including PT and doing nothing also discussed. Patient expressed understand ing and would like to continue. He expressed understand ing that he is at increased risk of bleeding and potentiall y rare spinal hematoma. We discussed the fact that the procedure is not intra spinal and that the more likely risks is of a hematoma. A decision by the patient was made to proceed while anticoagul ated as the other risk of NM also carries significan t morbidity/ mortality. [id number] Maksim Plasencia MD [facility] [address] [facility] [place] [address] 06/23/2024 10:24:01 06/23/2024 12:35:11 Lumbosacral spondylosis without myelopathy [id number] M47.817 patient had had 80% relief for over 10 hrs after his L 3-5 L MBB # 1, Will proceed with #2 L3-5 at this time. The risks of the procedure, including infection, bleeding, nerve damage, spinal cord injury, allergic reactions, worsening pain non efficacy and dural puncture were discussed with patient. Alternativ es including PT and doing nothing also discussed. Patient expressed understand ing and would like to continue. Low back pain [id number] M54.50 Arthropath y of lumbar facet joint 526951178 M47.816 Neuropathic pain 7437943 09 M79.2 currently here for right sided cluneal nerve stim removal, sprint PNS with 50% relief.I spent 30 minutes on the day of the visit, preparing for the visit by reviewing records/te st results, obtaining patient history, performing a medically necessary examinatio n, counseling /education the patient. [id number] Maksim Plasencia MD [facility] [address] [facility],[address] [place] [address] 07/08/2024 09:44:16 07/08/2024 12:43:02 Lumbosacral spondylosis without myelopathy 54730644 M47.817 patient had had 80% relief for over 10 hrs after his L 3-5 L MBB # 1, Will proceed with #2 L3-5 at this time. The risks of the procedure, including infection, bleeding, nerve damage, spinal cord injury, allergic reactions, worsening pain non efficacy and dural puncture were discussed with patient. Alternativ es including PT and doing nothing also discussed. Patient expressed understand ing and would like to continue. Lumbar fac et joint pain 175678345 M54.51 patients current pain appears to be at least partially facet mediated. He continues his home exercises and streches without significan t relief. will proceed with L4-5 L MBB as diagnostic at this time. The risks of the procedure, including infection, bleeding, nerve damage, spinal cord injury, allergic reactions, worsening pain non efficacy and dural puncture were discussed with patient. Alternativ es including PT and doing nothing also discussed. Patient expressed understand ing and would like to continue. He expressed understand ing that he is at increased risk of bleeding and potentiall y rare spinal hematoma. We discussed the fact that the procedure is not intra spinal and that the more likely risks is of a hematoma. A decision by the patient was made to proceed while anticoagul ated as the other risk of NM also carries significan t morbidity/ mortality. [id number] Maksim Plasencia MD [facility] OP [address] [place] [address] 07/18/2024 11:38:43 07/18/2024 13:29:50 Lumbosacral spondylosis without myelopathy 86189308 M47.817 patient had had 80% relief for over 10 hrs after his L 3-5 L MBB # 1, s/p L MBB # 2 with 80% relief for over 12 hrs. WIll proceed with RFA L3-5 at this time. The risks of the procedure, including infection, bleeding, nerve damage, spinal cord injury, allergic reactions, worsening pain non efficacy and dural puncture were discussed with patient. Alternativ es including PT and doing nothing also discussed. Patient expressed understand ing and would like to continue. Lumbar fac et joint pain 622088121 M54.51 patients current pain appears to be at least partially facet mediated. He continues his home exercises and streches without significan t relief. will proceed with L4-5 L MBB as diagnostic at this time. The risks of the procedure, including infection, bleeding, nerve damage, spinal cord injury, allergic reactions, worsening pain non efficacy and dural puncture were discussed with patient. Alternativ es including PT and doing nothing also discussed. Patient expressed understand ing and would like to continue. He expressed understand ing that he is at increased risk of bleeding and potentiall y rare spinal hematoma. We discussed the fact that the procedure is not intra spinal and that the more likely risks is of a hematoma. A decision by the patient was made to proceed while anticoagul ated as the other risk of NM also carries significan t morbidity/ mortality. Low back pain 414667420 M54.50 [id number] Maksim [facility]encia MD [facility] [address] [place] [address],[address] [place] [address] 08/03/2024 12:56:17 08/03/2024 14:49:25 Lumbosacral spondylosis without myelopathy 52085005 M47.817 patient had had 80% relief for over 10 hrs after his L 3-5 L MBB # 1, s/p L MBB # 2 with 80% relief for over 12 hrs. WIll proceed with RFA L3-5 at this time. The risks of the procedure, including infection, bleeding, nerve damage, spinal cord injury, allergic reactions, worsening pain non efficacy and dural puncture were discussed with patient. Alternativ es including PT and doing nothing also discussed. Patient expressed understand ing and would like to continue. Lumbar fac et joint pain 116316900 M54.51 patients current pain appears to be at least partially facet mediated. He continues his home exercises and streches without significan t relief. will proceed with L4-5 L MBB as diagnostic at this time. The risks of the procedure, including infection, bleeding, nerve damage, spinal cord injury, allergic reactions, worsening pain non efficacy and dural puncture were discussed with patient. Alternativ es including PT and doing nothing also discussed. Patient expressed understand ing and would like to continue. He expressed understand ing that he is at increased risk of bleeding and potentiall y rare spinal hematoma. We discussed the fact that the procedure is not intra spinal and that the more likely risks is of a hematoma. A decision by the patient was made to proceed while anticoagul ated as the other risk of NM also carries significan t morbidity/ mortality. [id number] Maksim Plasencia MD [facility] OP [address] [place] [address],[address] [place] [address] 08/17/2024 10:01:02 08/17/2024 12:49:28 Lumbosacral spondylosis without myelopathy 97106610 M47.817 patient had had 80% relief for over 10 hrs after his L 3-5 L MBB # 1, s/p L MBB # 2 with 80% relief for over 12 hrs. WIll proceed with RFA L3-5 at this time. The risks of the procedure, including infection, bleeding, nerve damage, spinal cord injury, allergic reactions, worsening pain non efficacy and dural puncture were discussed with patient. Alternativ es including PT and doing nothing also discussed. Patient expressed understand ing and would like to continue. Arthropath y of lumbar facet joint [id number] M47.816 Health Concerns Section Related Observation LastModified by Organization Detai ls LastModified Time None Recorded Concern Status LastModified by Organization Details LastModified Time None Recorded Advance Directives Directive N: Payers Insurance Date Sequence Insurance Name Policy Number Policy Parr Covered Member ID Parr Member ID Guarantor Name 09/22/2024 1 [facility] Jory [place] [id number] Jory Pritchard [place] 09/22/2024 1 [place] [employer] Jory [place] [id number] Jory Pritchard [place] 02/10/2025 2 [facility] [id number] 1 Jory Pritchard [place] [id number] Jory Pritchard [place] 09/22/2024 1 [facility] [id number] 1 Jory [place] [id number] Jory Pritchard [place] 09/22/2024 1 [place] [employer] Jory [place] [id number] Jory Pritchard [place] 09/22/2024 1 [facility] [id number] 1 Jory [place] [id number] Jory Pritchard [place] 11/02/2024 1 [place] Jory Pritchard [place] [id number] Jory Valenzuelaos Notes Date Note Type Note Provider Name and Address Organization Details Recorded Time 06/23/2024 text/html 74 y/o M with axial low back pain. The patient presents for follow up # 1 Bilateral Medial Branch Block L3, L4 L5 done on 06/09/24. Patient received 80-90 % relief from the procedure and it lasted around 10 hours. He states that after the procedure he was able to bend and twist with less limitations, stand and bend. He denies any fluctaunce, drainage or erythema in the area of the injections. He states that his overall level of pain 5-6/10. Maksim Plasencia MD [address] [place] [address], [phone], [facility] 06/23/2024 12:31:08 07/08/2024 text/html H anf P reviewed Maksim Plasencia MD [address] [place] [address], [phone], [facility] 07/08/2024 11:25:40 07/18/2024 text/html 74 y/o M with low back axial pain. The patient presents for # 2 Bilateral MBB L3-L5 done on 07/08/24. Patient received 75-80 % relief from the procedure and it lasted 2 days. He had a similar response after his first L MBB L3-5 as well. He states reaching is one of the things that trigger his pain. Pain level now 6/10. He does do daily stretches and exercises but the past 3 days it is starting to bother be bothersome. He denies any fluctuance, drainage or erythema in the area of the injection. Maksim Plasencia MD [address] [place] [address], [phone], [facility] 07/18/2024 13:11:53 08/03/2024 text/html H and P reviewed Maksim Plasencia MD [address] [place] [address], [phone], [facility] 08/03/2024 14:33:04 08/17/2024 text/html H and P reviewed Maksim Plasencia MD [address] [place] [address], [phone], [facility] 08/17/2024 11:55:02
--- OUTSIDE RECORDS SUMMARY | 2025-03-20 18:20 | XMS_ITS | Clinical Summary ---
Author Organization [facility] Address [address] [place] [address] Phone Care Team Providers Care Associate Attorney Name Role Phone Danny Villar MD Primary Care Provider [phone] Manjit Sutherland MD Unavailable Un available Danny Villar MD Unavailable [phone] Allergies Active Allergy Reactions Criticality Noted Date [...] 06/24/2019 Overview (03/10/2024): Had SPRINT placed 01/14/24 [facility]- for right cluneal nerve pain- getting 80% relief- Dr. Srikanth Plasencia MD [phone] r/t PRN Degenerative disc disease, lumbar 06/24/2019 [...] 06/22/2012 Overview (08/25/2019): (thoracic) inserted at the [facility] 2012 Sleep apnea 06/22/2006 Overview (06/07/2018): Last test [facility] Coronary artery disease 08/20/2000 Overview (06/07/2018): with anterior wall [facility] in 08/2000 Resolved Problems Problem Noted Date Diagnosed Date Resolved Date Bruit 05/31/2019 11/17/2024 Leukocytosis 05/31/2019 11/17/2024 Encounters Date Type Department Care Team Description 03/16/2025 Orders Only [facility] Internal [facility] [address] [place] [address] Provider, MD Kishore 02/17/2025 Telephone [facility] [address] [place] [address] Danny Villar MD Appointment from Last 3 [...] Description 04/05/2025 4:30 PM EDT Office Visit [facility] [address] [place] [address] Danny Villar MD [address] [place] [address] 05/22/2025 3:30 PM EST Office Visit [facility] [address] [place] [address] [place] [address] Rafita Osborn DO [address] [place] [address] Health Maintenance Due Date Last Done Comments ZOSTER VACCINES (1 of 2) 1999 Adult Td,Tdap Booster 07/01/2023 07/01/2013, 002 RSV VACCINE (1 - 1-dose 75+ series) 02/16/2024 REPEAT PHQ 12/17/2024 11/16/2024, 11/16/2024 INFLUENZA VACCINE (#1) 2025 , 04/27/2023, 04/27/2023, Additional history exists COVID-19 VACCINE (2024- season) 2025 03/12/2022, 07/22/2021, 09/06/2020, Additional history [...] Procedure Name Priority Date/Time Associated Diagnosis Comments OUTSIDE LAB Routine 03/15/2025 4:36 PM EDT OUTSIDE XR CHEST REPORT ONLY Routine 03/15/2025 8:37 AM EDT TSH WITH REFLEX Routine 08/30/2024 11:40 AM EDT Essential hypertension COMPREHENSIVE METABOLIC PANEL Routine 08/30/2024 11:40 AM EDT Essential hypertension Chronic systolic congestive heart failure HEPATITIS C ANTIBODY, QUALITATIVE Routine 06/07/2018 2:01 PM EST Need for hepatitis C screening test from Last 3 Months or Most Recently Relevant to Health Maintenance Results * Outside Lab (03/15/2025 4:36 PM EDT) us Historical Provider MD LAB BLOOD ORDERABLES Albertina l Result * Outside XR??Chest Report Only (03/15/2025 8:37 AM EDT) Historical Provider IMG XR CHEST Final Res ult * (ABNORMAL) Comprehensive metabolic panel (08/30/2024 11:40 AM EDT) SODIUM 135 133 - 146 mmol/L [facility] POTASSIUM 5.0 3.3 - 5.1 mmol/L [facility] CHLORIDE 100 96 - 108 mmol/L [facility] CO2 26 21 - 35 mmol/L [facility] BUN 28(H) 6 - 19 mg/dL [facility] CREATININE 1.40 0.5 - 1.5 mg/dL [facility] GLUCOSE 108(H) 70 - 99 mg/dL [facility] ALBUMIN 4.4 3.9 - 4.8 g/dL [facility] TOTAL PROTEIN 7.3 6.5 - 8.0 g/dL [facility] CALCIUM 9.5 8.4 - 10.3 mg/dL [facility] ALKALINE PHOSPHATASE 54 39 - 117 U/L [facility] TOTAL BILIRUBIN 0.7 0.0 - 1.2 mg/dL [facility] AST 25 0 - 37 U/L [facility] ALT 21 0 - 40 U/L [facility] GLOBULIN 2.9 1 - 4.8 g/dL [facility] EGFR 52(L) >59 mL/min/1.7 3m2 [facility] Comment:Estimated glomerular filtration rate calculated using the CKD-EPI refit equation. ANION GAP 14 10 - 20 mmol/L [facility] Blood 08/30/2024 11:4 0 AM EDT 08/30/2024 11:45 AM EDT Danny Villar MD LAB BLOOD ORDERABLES Final Re sult Performing Organization Address [facility]/ZIP Co de Phone Number [address] [address] * TSH with reflex (08/30/2024 11:40 AM EDT) TSH 2.36 0.27 - 4.20 uIU/mL [facility] Blood 08/30/2024 11:4 0 AM EDT 08/30/2024 11:45 AM EDT Danny Villar MD LAB BLOOD ORDERABLES Final Re sult Performing Organization Address [facility] Co de Phone Number [address] [address] * Hepatitis C antibody, qualitative (06/07/2018 2:01 PM EST) HCV Negative Negative [facility] Comment: This is a screening test and should be confirmed with molecular testing Blood 06/07/2018 2:01 PM EST 06/07/2018 7:54 PM EST Danny Villar MD LAB BLOOD ORDERABLES Final Re sult Performing Organization Address [facility] Co de Phone Number [address] [address] from Last 3 Months or Most Recently Relevant to Health Maintenance Insurance MEDICARE PART A & B MEDICARE SUPPLEMENT MEDICARE PART A & B MEDICARE SUPPLEMENT MEDICARE PART A & B Member Subscriber Plan / Payer (Ef fective 2014-Present) Name:Smith Paiz Member ID:[id number] Relation to Subscriber:Self Name:Smith Paiz Subscriber ID:[id number] Payer ID:[id number] Group ID:Not on file Type:Medicare Address: [place] [address] MEDICARE SUPPLEMENT MEDICARE PART A & B MEDICARE SUPPLEMENT MEDICARE PART A & B [facility] MEDICARE SUPPLEMENT MEDICARE PART A & B [facility] MEDICARE SUPPLEMENT MEDICARE PART A & B MEDICARE SUPPLEMENT MEDICARE PART A & B MEDICARE SUPPLEMENT MEDICARE PART A & B [facility] MEDICARE SUPPLEMENT Care Teams Associate Attorney Relationship Specialty Start Date End Date Danny Villar MD [address] [place] [address] PCP - General 05/21/17 Manjit Sutherland MD Cardiology 08/25/19 Danny Villar MD [address] [place] [address] Insurance Assigned Provider 09/26/23 Additional Source Comments The information contained in this document represents components of the legal health record. It is not the complete legal health record.[facility]
--- OUTSIDE RECORDS SUMMARY | 2025-03-20 18:20 | XMS_ITS | Encounter Summary ---
Author Organization [facility] Address [address] [address] Phone Care Team Providers Care Retail Parts Professional Name Role Phone Danny Villar MD Primary Care Provider [phone] Manjit Sutherland MD Unavailable Un available Danny Villar MD Unavailable [phone] Reason for Visit * Reason Onset Date Comments Medication Prior Authorization 09/04/2022 Encounter Details Date Type Department Care Team (Late Contact Info) Description 09/04/2022 Telephone [facility] [address] [place] [address] Adilia Sandhu RN [email or web address] Medication Prior Authorization Social History Tobacco Use [...] Description 04/05/2025 4:30 PM EDT Office Visit [facility] [address] [place] [address] Danny Villar MD [address] [place] [address] 05/22/2025 3:30 PM EST Office Visit [facility] [address] [place] [address] Rafita Osborn DO [address] [place] [address] [email or web address] documented as of this encounter Visit Diagnoses Not on filedocumented in this encounter Additional Health Concerns Assessment Noted Time PHQ-2 Depression Total Score: 2 08/11/19 23 11:45 AM EST documented as of this encounter Care Teams Retail Parts Professional Relationship Specialty Start Date End Date Danny Villar MD [address] [place] [address] PCP - General 05/21/17 Manjit Sutherland MD Cardiology 08/25/19 Danny Villar MD [address] [place] [address] Insurance Assigned Provider 09/26/23 documented as of this encounter Additional Source Comments The information contained in this document represents components of the legal health record. It is not the complete legal health record.[facility]
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
--- OUTSIDE RECORDS SUMMARY | 2025-03-20 18:20 | XMS_ITS | Patient Health Record ---
Author Organization [facility] Address [address] [place] [address] Care Team Providers Care Laser Beam Cutter Name Role Phone Danny Villar MD Primary [...] W/U Status Risk Notes Problem Rectal bleeding (24389444) Rectal bleeding (569.3) Active confirmed Problem Colitis (45343697) Colitis (558.9) Active confirmed Problem Rectal pain (31103876) Rectal pain (569.42) Active confirmed Plan Of Treatment Pending Test Test Name Order Date Hemoccult Cards (Screening) 03/24/2012 Future Test Test Name Order Date COLONOSCOPY 02/23/2013 Insurance Providers Payer Name Payer Address Payer Phone Subscriber Number Group Number Insured Name Patient Relationship to Insured Coverage Start Date Coverage End Date [facility] [address] [place] [phone] [id number] JORY BRAGG Self - patient is the insured Medical (General) History Medical History History ICD Code sleep apnea coronary disease with CO and stent place ment hypertension elevated cholesterol anxiety Surgical History Surgery Date(Month/Year) back surgery Stent placement
--- OUTSIDE RECORDS SUMMARY | 2025-03-20 18:20 | XMS_ITS | Encounter Summary ---
Author Organization [facility] Address [email or web address] [place] [phone] Phone Care Team Providers Care Business Development Professional Name Role Phone Danny Villar MD Primary Care Provider [phone] Manjit Sutherland MD Unavailable Un available Danny Villar MD Unavailable [phone] Encounter Details Date Type Department Care Team (Late st Contact Info) Description 03/16/2025 Orders Only [facility] Internal Medicine [address] [place] [address] Provider, MD Kishore [address] [place], [place] [id number] Social History Tobacco Use Types Packs/Day Years [...] 04/05/2025 4:30 PM EDT Office Visit [facility] Internal Medicine [address] [place] [address] Danny Villar MD [address] [place] [address] [email or web address] 05/22/2025 3:30 PM EST Office Visit [facility] [address] [place] [address] Rafita Osborn DO [address] [place] [address] [email or web address] documented as of this encounter Procedures Procedure Name Priority Date/Time Associated Diagnosis Comments OUTSIDE LAB Routine 03/15/2025 4:36 PM EDT OUTSIDE XR CHEST REPORT ONLY Routine 03/15/2025 8:37 AM EDT documented in this encounter Results * Outside Lab (03/15/2025 4:36 PM EDT) us Historical Provider LAB BLOOD ORDERABLES Albertina l Result * Outside XR??Chest Report Only (03/15/2025 8:37 AM EDT) us Historical Provider IMG XR CHEST Final Res ult documented in this encounter Visit Diagnoses Not on filedocumented in this encounter Additional Health Concerns Assessment Noted Time PHQ-9 Depression Total Score: 18 025 8:39 PM EDT PHQ-2 Depression Total Score: 6 11/17/19 25 8:39 PM EDT documented as of this encounter Care Teams Business Development Professional Relationship Specialty Start Date End Date Danny Villar MD [address] [place] [address] [email or web address] PCP - General 05/21/17 Manjit Sutherland MD Cardiology 08/25/19 Danny Villar MD [address] [place] [address] Insurance Assigned Provider 09/26/23 documented as of this encounter Additional Source Comments The information contained in this document represents components of the legal health record. It is not the complete legal health record.[email or web address]
== END 2025-03-20 16:40 | disposition home or self-care (01) ==
PROVIDERS: PCP Internal Medicine; Visit Provider Physician Assistant Medical
DX: R05.1 Acute cough (principal)

== ENCOUNTER → 2025-03-20 16:20 | Outpatient (BNVA) | payer MEDICARE, OTHER, SELFPAY | PROVIDERS: PCP Internal Medicine; Visit Provider Physician Assistant Medical | DX: R05.1 Acute cough (principal) | CPT/HCPCS: 99212 ==